=== PATIENT | female | born 1985 | race African-American/Black ===

== ENCOUNTER 2017-07-16 16:53 | Emergency (ER) | payer SELFPAY ==
[~2017-07-16] VITALS: Ht 170.2 cm; Wt 128.0 kg
[~2017-07-16 16:53] MED LIST: LEVO150T7 PO; SYNT150T PO
[2017-07-16 17:02] VITALS: BP 146/92; PULSE 81; RESP 18; TEMP 99; O2SAT 100
[2017-07-16] MEDS ORDERED: LEVO.15 PO (18:19)
[2017-07-16 20:32] LABS: AUTOMATED NEUTROPHIL # 5.3 TH/MM3 (1.8-7.7); BASOPHIL # 0.2 TH/MM3 (0-0.2); BASOPHIL % 2.1 % (0.0-2.0); EOSINOPHIL # 0.2 TH/MM3 (0-0.4); EOSINOPHIL % 2.1 % (0.0-4.0); HEMATOCRIT 34.4 % (35.0-46.0); HEMO FLAGS DIFF FINAL; LYMPH % 34.6 % (9.0-44.0); LYMPHOCYTE # 3.2 TH/MM3 (1.0-4.8); MEAN CELL VOLUME 84.3 FL (80.0-100.0); MEAN CORPUSCULAR HEMOGLOBIN 27.6 PG (27.0-34.0); MEAN CORPUSCULAR HGB CONC 32.8 % (32.0-36.0); MONO % 5.7 % (0.0-8.0); NEUT % 55.5 % (16.0-70.0); PLATELET COUNT 231 TH/MM3 (150-450); RED BLOOD COUNT 4.08 MIL/MM3 (4.00-5.30); RED CELL DISTRIBUTION WIDTH 14.6 % (11.6-17.2); WHITE BLOOD COUNT 9.4 TH/MM3 (4.0-11.0)
[2017-07-16 20:45] LABS: POTASSIUM 3.2 MEQ/L (3.5-5.1)
[2017-07-16 20:48] LABS: BICARBONATE 24.8 MEQ/L (21.0-32.0)
[2017-07-16 21:00] VITALS: BP 150/94; PULSE 70; RESP 18; O2SAT 100
[2017-07-16 21:12] LABS: BETA HCG QUANT LESS THAN 1 MIU/ML (0-5)
[2017-07-16] MEDS ORDERED: POTASSIUM CHLORIDE 20 MEQ CONTROLLED RELEASE TAB PO ONE (21:45)
--- NOTE | 2017-07-16 21:46 | PD ---
HPI Chief Complaint: Professor Of History Problem/Complaint Time Seen by Provider: 19:41 Travel History International Travel<30 days: No Contact w/Intl Traveler<30days: No Traveled to known affect area: No History of Present Illness HPI 32-year-old female presents to the emergency department by private transportation reporting 30 days of vaginal bleeding daily large amount and passing large clots and fatigue. Patient states she has not come to the emergency room for approximately a puppy trainer prior as she's been dizzy and moving. Due to ongoing symptoms patient decided to come to the emergency room. Patient states she's never had this type of bleeding before but does have history irregular menses. Patient states mother had a hysterectomy at age 40. Patient has intermittent crampy pelvic pain. Patient is sexually active. Patient's last normal period for her reportedly was at the end of April. Patient does not have a. May and only spotted and beginning of June. Patient denies other concerns or complaints. Patient is unable to identify exacerbating or alleviating factors. PFSH Past Medical History Narrative Medical Irregular menses, hypothyroidism Ab1, tubal ligation, thyroidectomy; no tobacco use; nursing notes reviewed Diminished Hearing: No Reproductive: Yes (IRREGULAR BLEEDING) Immunizations Current: No Thyroid Disease: Yes ?: Not : 5 Para: 4 Miscarriage: 1 : 0 Tubal Ligation: Yes Past Surgical History Endocrine Surgery: Yes (THYROID) Other Surgery: Yes (thyroidectomy) Social History Alcohol Use: Yes (occ) Tobacco Use: No Substance Use: No Allergies-Medications (Allergen,Severity, Reaction): Coded Allergies: No Known Allergies (Verified , 07/16/17) Reported Meds & Prescriptions Reported Meds & Active Scripts Active Reported Synthroid (Levothyroxine Sodium) 150 Mcg Tab 150 Mcg PO DAILY Review of Systems Except as stated in HPI: all other systems reviewed are Neg General / Constitutional: No: Fever HENT: No: Congestion Respiratory: No: Shortness of Breath Gastrointestinal: No: Vomiting, Abdominal Pain Genitourinary: Positive: Pelvic Pain, Vaginal Bleeding, No: Dysuria Musculoskeletal: No: Pain (cramping) Skin: No Rash Neurologic: Positive: Dizziness, No: Weakness Psychiatric: No: Anxiety Hematologic/Lymphatic: No: Lymph Node Enlargement Physical Exam Narrative GENERAL: Well-developed well-nourished female in no acute distress no respiratory distress SKIN: Warm and dry. HEAD: Normocephalic. EYES: No scleral icterus. No injection or drainage. NECK: Supple, trachea midline. No JVD or lymphadenopathy. CARDIOVASCULAR: Regular rate and rhythm without murmurs, gallops, or rubs. RESPIRATORY: Breath sounds equal bilaterally. No accessory muscle use. GASTROINTESTINAL: Abdomen soft, non-tender, nondistended. Pelvic exam: Scant blood on external exam no lesions no induration; speculum exam small amount minuscule clot no tissue cervical os closed; bimanual exam no adnexal mass or tenderness no uterine enlargement or cervical motion tenderness cervical os is closed. MUSCULOSKELETAL: No cyanosis, or edema. BACK: Nontender without obvious deformity. No CVA tenderness. Data Data Last Documented VS Vital Signs Date Time Temp Pulse Resp B/P Pulse Ox O2 Delivery O2 Flow Rate FiO2 07/16/17 22:10 74 18 99 07/16/17 21:52 150/94 146/92 07/16/17 21:00 Room Air 07/16/17 17:02 99.0 Orders Complete Blood Count With Diff (07/16/17 19:41) Basic Metabolic Panel (Bmp) (07/16/17 19:41) Iv Access Insert/Monitor (07/16/17 19:41) Orthostatic Blood Pressure (07/16/17 19:41) Beta Hcg (Quant/Titer) (07/16/17 20:48) Potassium Chloride (Kcl) (07/16/17 21:45) Mandatory Outpatient Referral (07/16/17 21:41) Labs Laboratory Tests Test 07/16/17 20:27 White Blood Count 9.4 TH/MM3 Red Blood Count 4.08 MIL/MM3 Hemoglobin 11.3 GM/DL Hematocrit 34.4 % Mean Corpuscular Volume 84.3 FL Mean Corpuscular Hemoglobin 27.6 PG Mean Corpuscular Hemoglobin 32.8 % Concent Red Cell Distribution Width 14.6 % Platelet Count 231 TH/MM3 Mean Platelet Volume 7.8 FL Neutrophils (%) (Auto) 55.5 % Lymphocytes (%) (Auto) 34.6 % Monocytes (%) (Auto) 5.7 % Eosinophils (%) (Auto) 2.1 % Basophils (%) (Auto) 2.1 % Neutrophils # (Auto) 5.3 TH/MM3 Lymphocytes # (Auto) 3.2 TH/MM3 Monocytes # (Auto) 0.5 TH/MM3 Eosinophils # (Auto) 0.2 TH/MM3 Basophils # (Auto) 0.2 TH/MM3 CBC Comment DIFF FINAL Differential Comment Sodium Level 138 MEQ/L Potassium Level 3.2 MEQ/L Chloride Level 106 MEQ/L Carbon Dioxide Level 24.8 MEQ/L Anion Gap 7 MEQ/L Blood Urea Nitrogen 10 MG/DL Creatinine 0.77 MG/DL Estimat Glomerular Filtration 107 ML/MIN Rate Random Glucose 90 MG/DL Calcium Level 8.5 MG/DL Human Chorionic Gonadotropin, LESS THAN 1 Quant MIU/ML MDM Medical Decision Making Medical Screen Exam Complete: Yes Emergency Medical Condition: Yes Medical Record Reviewed: Yes Interpretation(s) CBC & BMP Diagram 07/16/17 20:27 Vital Signs Date Time Temp Pulse Resp B/P Pulse Ox O2 Delivery O2 Flow Rate FiO2 07/16/17 17:02 99.0 81 18 146/92 100 Room Air Quantitative hCG: Less than 1, not elevated Differential Diagnosis Dysfunctional uterine bleeding, , ruptured ovarian cysts, menses, anemia Narrative Course Patient has history of irregular menses with multiple visits since 2012 for dysfunction uterine bleeding has not yet followed up with a pelota maker. Patient with recurrent daily vaginal bleeding patient reports for the past 30 days with large clots and dizziness and fatigue. Specimens collected and sent for resulting Hemoglobin is stable at 11.3; patient is not ; pelvic exam scant blood in the vaginal vault no tissue cervical os closed and no palpable uterine enlargement or adnexal mass or tenderness Patient hemodynamically stable for outpatient management and follow-up with pelota maker. Patient can encouraged to follow-up with pelota maker for definitive intervention. Mandatory referral for TOOL ENGINEER follow-up ordered. Diagnosis Primary Impression: Dysfunctional uterine bleeding Referrals: Wheel Inspector call for appointment On-call pelota maker: Dr. Muñiz Patient Instructions: General Instructions Additional Instructions: Increase fluid hydration Follow-up with pelota maker; on-call pelota maker is Dr. Muñiz Return to the emergency department for any concerns or change in condition May use as needed ibuprofen per package directions for pain associated with inflammation/cramping Disposition: 01 DISCHARGE HOME Condition: Stable Rosa Isela Quiles MD Jul 16, 2017 21:46
[2017-07-16 21:52] VITALS: BP_SYST 146; BP_SYST 150; BP_DIAS 92; BP_DIAS 94; RESP 18
== END 2017-07-16 22:11 | disposition home or self-care (01) ==
LOC: PHED 16:53
DX: N93.8 Other specified abnormal uterine and vaginal bleeding (principal); E03.9 Hypothyroidism, unspecified
CPT/HCPCS: 80048; 84702; 85025; 99284

== ENCOUNTER 2017-11-06 08:02 | Emergency (ER) | payer SELFPAY ==
[~2017-11-06] VITALS: Ht 170.2 cm; Wt 130.0 kg
[~2017-11-06 08:02] MED LIST changes: +LEVO.15 PO; -LEVO150T7 PO; -SYNT150T PO
[2017-11-06 08:05] VITALS: BP 138/101; PULSE 87; RESP 16; TEMP 98.4; O2SAT 97
--- NOTE | 2017-11-06 08:49 | PD ---
HPI Chief Complaint: GI Complaint Time Seen by Provider: 08:34 Travel History International Travel<30 days: No Contact w/Intl Traveler<30days: No Traveled to known affect area: No History of Present Illness HPI 32-year-old female presents with abdominal pain and her left upper quadrant over the past couple of days. She states she took Dulcolax by mouth and a fleets enema and was able to have a bowel movement today but was still not feeling better. She states she's also been nauseous and had an episode of emesis. She denies any other concurrent complaints. She states she has not had relief with [id number] Advil. Quality pain is sharp. Severity is severe. She denies specific migration. She denies modifying factors. PFSH Past Medical History Diminished Hearing: No Reproductive: Yes (IRREGULAR BLEEDING) Immunizations Current: No Thyroid Disease: Yes ?: Not LMP: 09/16/17-09/25/17 : 5 Para: 4 Miscarriage: 1 : 0 Tubal Ligation: Yes (01/2011) Past Surgical History Endocrine Surgery: Yes (THYROID NODULE REMOVED) Other Surgery: Yes (thyroidectomy, tubal ligation) Social History Alcohol Use: Yes (OCCASSIONAL) Tobacco Use: No Substance Use: No Allergies-Medications (Allergen,Severity, Reaction): Coded Allergies: No Known Allergies (Verified Adverse Reaction, Unknown, 11/06/17) Reported Meds & Prescriptions Reported Meds & Active Scripts Active Reported Synthroid (Levothyroxine Sodium) 150 Mcg Tab 150 Mcg PO DAILY Review of Systems Except as stated in HPI: all other systems reviewed are Neg Physical Exam Narrative GENERAL: Well-nourished, well-developed patient. well appearing SKIN: Warm and dry. HEAD: Normocephalic and atraumatic. EYES: No injection or drainage. ENT: No nasal drainage noted. NECK: Supple, trachea midline. CARDIOVASCULAR: Regular rate and rhythm RESPIRATORY: no increased effort. No accessory muscle use. GASTROINTESTINAL: Abdomen soft, mild ttp in luq, nondistended. no rebound EXTREMITIES: No edema. NEUROLOGICAL: Awake and alert. Motor and sensory grossly within normal limits. Normal speech. Data Data Last Documented VS Vital Signs Date Time Temp Pulse Resp B/P (MAP) Pulse Ox O2 Delivery O2 Flow Rate FiO2 11/06/17 11:59 67 26 130/78 (95) 100 Room Air 11/06/17 08:05 98.4 Orders Orders Urinalysis - C+S If Indicated (11/06/17 08:19) Ecg Monitoring (11/06/17 08:19) Oximetry (11/06/17 08:19) Ed Urine Pregnancytest Poc (11/06/17 08:19) Complete Blood Count With Diff (11/06/17 08:39) Comprehensive Metabolic Panel (11/06/17 08:39) Lipase (11/06/17 08:39) Ct Abd/Pel W Iv Contrast(Rout) (11/06/17 ) Iv Access Insert/Monitor (11/06/17 08:39) Iohexol 350 Inj (Omnipaque 350 Inj) (11/06/17 11:10) Ketorolac Inj (Toradol Inj) (11/06/17 11:30) Ed Discharge Order (11/06/17 12:30) Labs Laboratory Tests Test 11/06/17 09:05 11/06/17 09:40 Urine Color YELLOW Urine Turbidity CLEAR Urine pH 6.0 Urine Specific [place] 1.023 Urine Protein TRACE mg/dL Urine Glucose (UA) NEG mg/dL Urine Ketones NEG mg/dL Urine Occult Blood SMALL Urine Nitrite NEG Urine Bilirubin NEG Urine Urobilinogen LESS THAN 2.0 MG/DL Urine Leukocyte Esterase SMALL Urine RBC 2 /hpf Urine WBC 1 /hpf Urine Squamous Epithelial Cells 4 /hpf Urine Mucus FEW /lpf Microscopic Urinalysis Comment CULT NOT INDICATED Blood Urea Nitrogen 11 MG/DL Creatinine 1.14 MG/DL Random Glucose 97 MG/DL Total Protein 7.6 GM/DL Albumin 3.3 GM/DL Calcium Level 8.5 MG/DL Alkaline Phosphatase 89 U/L Aspartate Amino Transf (AST/SGOT) 14 U/L Alanine Aminotransferase (ALT/SGPT) 18 U/L Total Bilirubin 0.6 MG/DL Sodium Level 137 MEQ/L Potassium Level 3.8 MEQ/L Chloride Level 107 MEQ/L Carbon Dioxide Level 21.3 MEQ/L Anion Gap 9 MEQ/L Estimat Glomerular Filtration Rate 68 ML/MIN Lipase 69 U/L White Blood Count 10.0 TH/MM3 Red Blood Count 4.67 MIL/MM3 Hemoglobin 12.1 GM/DL Hematocrit 36.5 % Mean Corpuscular Volume 78.1 FL Mean Corpuscular Hemoglobin 25.8 PG Mean Corpuscular Hemoglobin Concent 33.1 % Red Cell Distribution Width 16.0 % Platelet Count 257 TH/MM3 Mean Platelet Volume 7.9 FL Neutrophils (%) (Auto) 75.9 % Lymphocytes (%) (Auto) 15.7 % Monocytes (%) (Auto) 7.5 % Eosinophils (%) (Auto) 0.4 % Basophils (%) (Auto) 0.5 % Neutrophils # (Auto) 7.6 TH/MM3 Lymphocytes # (Auto) 1.6 TH/MM3 Monocytes # (Auto) 0.8 TH/MM3 Eosinophils # (Auto) 0.0 TH/MM3 Basophils # (Auto) 0.1 TH/MM3 CBC Comment DIFF FINAL Differential Comment MDM Medical Decision Making Medical Screen Exam Complete: Yes Emergency Medical Condition: Yes Medical Record Reviewed: Yes ([facility] confirmed) Interpretation(s) CBC & BMP Diagram 11/06/17 09:05 Total Protein 7.6, Albumin 3.3 L, Calcium Level 8.5, Alkaline Phosphatase 89, Aspartate Amino Transf (AST/SGOT) 14 L, Alanine Aminotransferase (ALT/SGPT) 18, Total Bilirubin 0.6 11/06/17 09:40 Last 24 hours Impressions Abdomen/Pelvis CT 11/06/17 0000 Signed Impressions: Service Date/Time: Monday, November 06, 2017 10:53 - CONCLUSION: 1. Patient's symptoms appear to be due to a 7.5 mm stone which is just passed through the left UVJ and sits at the left base of the urinary bladder. There is still some left-sided hydronephrosis and hydroureter. No additional stones identified. 2. Asymmetric sclerosis on the iliac side of the right SI joint. 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 This is usually bilateral and symmetric but unilateral cases have been reported. Roberto Velasquez MD Differential Diagnosis Pancreatitis, stone, gastritis, constipation Narrative Course Will check lab work, urinalysis, CT scan abdominal pelvis and reevaluate Patient given Toradol for pain control Patient has large stone but has passed into bladder, Patient denies any new complaints and states that they are feeling better. Patient happy with care, all questions answered. Patient knows that follow up is incumbent on them and to return to the emergency room immediately if new or worsening symptoms develop. Patient given strict return precautions, vitals reviewed and are normal , agrees to further workup as an outpatient. Physician Communication Physician Communication dr hernadez agrees to dc given in bladder Diagnosis Primary Impression: Kidney stone Additional Impression: Hydronephrosis Qualified Codes: N13.30 - Unspecified hydronephrosis Patient Instructions: General Instructions Additional Instructions: return as needed, follow with urology. percocet as need for severe pain-don't take while driving, [id number] stool softener Med/Other Pt SpecificInfo: Prescription(s) given Scripts Oxycodone-Acetaminophen (Percocet) 5-325 mg Tab 1 TAB PO Q6H Y for PAIN, #15 TAB 0 Refills Prov: Clotilde Sykes MD 11/06/17 Disposition: 01 DISCHARGE HOME Condition: Stable Clotilde Sykes MD Nov 06, 2017 08:49
[2017-11-06 09:34] LABS: BLOOD, URINE SMALL (NEG); COMMENT (UR) CULT NOT INDICATED; CULTURE IF INDICATED CULT NOT INDICATED; GLUCOSE,URINE NEG (NEG); KETONE, URINE NEG (NEG); MUCUS URINE FEW /lpf (OCC); NITRITE,URINE NEG (NEG); SQUAMOUS EPITHELIAL CELL URINE 4 /hpf (0-5); URINE COLOR YELLOW (YELLW/STRAW)
[2017-11-06 09:43] LABS: ALT (GPT) 18 U/L (10-53); ANION GAP 9 MEQ/L (5-15); AST (GOT) 14 U/L (15-37); BICARBONATE 21.3 MEQ/L (21.0-32.0); BLOOD UREA NITROGEN 11 MG/DL (7-18); CHLORIDE 107 MEQ/L (98-107); GLOMERULAR FILTRATION RATE 68 ML/MIN (>89); POTASSIUM 3.8 MEQ/L (3.5-5.1); SODIUM (NA) 137 MEQ/L (136-145)
[2017-11-06 09:45] VITALS: BP 127/85; PULSE 76; RESP 19; O2SAT 100
[2017-11-06 09:46] LABS: ALKALINE PHOSPHATASE 89 U/L (45-117); TOTAL BILIRUBIN ADULT 0.6 MG/DL (0.2-1.0)
[2017-11-06 10:06] LABS: AUTOMATED NEUTROPHIL # 7.6 TH/MM3 (1.8-7.7); BASOPHIL # 0.1 TH/MM3 (0-0.2); BASOPHIL % 0.5 % (0.0-2.0); EOSINOPHIL % 0.4 % (0.0-4.0); HEMATOCRIT 36.5 % (35.0-46.0); HEMO FLAGS DIFF FINAL; LYMPH % 15.7 % (9.0-44.0); LYMPHOCYTE # 1.6 TH/MM3 (1.0-4.8); MEAN CELL VOLUME 78.1 FL (80.0-100.0); MEAN CORPUSCULAR HEMOGLOBIN 25.8 PG (27.0-34.0); MEAN CORPUSCULAR HGB CONC 33.1 % (32.0-36.0); MONO % 7.5 % (0.0-8.0); NEUT % 75.9 % (16.0-70.0); PLATELET COUNT 257 TH/MM3 (150-450); RED BLOOD COUNT 4.67 MIL/MM3 (4.00-5.30)
[2017-11-06] MEDS ORDERED: IOHEXOL 350 MG/ML 10 ML VIAL (for RAD DIAG) IVCONTRAST ONE (11:10)
--- NOTE | 2017-11-06 11:19 | RADRPT ---
EXAM DATE/TIME: 11/06/2017 10:53 [facility] COMPARISON: No previous studies available for comparison. INDICATIONS : Constipation. Left upper quadrant pain for 3 days. IV CONTRAST: 71 cc Omnipaque 350 (iohexol) IV ORAL CONTRAST: No oral contrast ingested. RADIATION DOSE: 21.49 CTDIvol (mGy) MEDICAL HISTORY : None SURGICAL HISTORY : Tubal ligation. ENCOUNTER: Initial ACUITY: 3 days PAIN SCALE: 5/10 LOCATION: Left upper quadrant TECHNIQUE: Volumetric scanning of the abdomen and pelvis was performed. Using automated exposure control and ad justment of the mA and/or kV according to patient size, radiation dose was kept as low as reasonably achievable to obtain optimal diagnostic quality images. DICOM format image data is available electro nically for review and comparison. FINDINGS: LOWER LUNGS: The visualized lower lungs are clear. LIVER: Homogeneous density without lesion. There is no dilation of the biliary tree. No calcified gallston es. SPLEEN: Normal size without lesion. PANCREAS: Within normal limits. KIDNEYS: Pelvocaliectasis of the left renal collecting system with associated hydroureter. This appears to be due to a 7.5 mm stone identified at the base of the urinary bladder, just distal to the left UVJ. No additional stones identified. Right kidney is radiographically normal. ADRENAL GLANDS: Within normal limits. VASCULAR: There is no aortic aneurysm. BOWEL/MESENTERY: The stomach, small bowel, and colon demonstrate no acute abnormality. There is no free intraperitone al air or fluid. ABDOMINAL WALL: Within normal limits. RETROPERITONEUM: There is no lymphadenopathy. BLADDER: No wall thickening or mass. REPRODUCTIVE: Within normal limits. INGUINAL: There is no lymphadenopathy or hernia. MUSCULOSKELETAL: Asymmetric sclerosis on the iliac side of the right SI joint. Osseous structures are otherwise intact . CONCLUSION: 1. Patient's symptoms appear to be due to a 7.5 mm stone which is just passed through the left UVJ an d sits at the left base of the urinary bladder. There is still some left-sided hydronephrosis and hyd roureter. No additional stones identified. 2. Asymmetric sclerosis on the iliac side of the right SI joint. 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 This is usually bilateral and symmetric but unilateral cases have been reported. Roberto Velasquez MD on November 06, 2017 at 11:11 Board Certified Radiologist. This report was verified electronically.
[2017-11-06] MEDS ORDERED: KETOROLAC TROMETHAMINE 30 MG/ML (IVP) VIAL IV PUSH ONE (11:30)
[2017-11-06 11:59] VITALS: BP 130/78; PULSE 67; RESP 26; O2SAT 100
[2017-11-06] MEDS ORDERED: PERC5TAB12 PO (12:34)
[2017-11-06 13:08] VITALS: BP 142/89
== END 2017-11-06 13:15 | disposition home or self-care (01) ==
LOC: NEPC 08:02
DX: N13.2 Hydronephrosis with renal and ureteral calculous obstruction (principal)
CPT/HCPCS: 74177; 80053; 81001; 83690; 84703; 85025; 96374; 99285; J1885; Q9967